=== PATIENT | female | born 1955 | race Caucasian/White ===

== ENCOUNTER 2018-10-22 13:47 | Emergency (ER) | payer OTHER ==
[2018-10-22 14:06] VITALS: BP 147/72
--- NOTE | 2018-10-22 14:22 | UC ---
UC General HPI - HPI Summary HPI Summary: day 4 of headache, sinus pain with green-bloody drainage, pain in both ears, post nasal drip with throat irritation and cough. No fever, cp, sob or COPD. Hx of sinusitis and this is the same. Pt states she rarely gets this ill. Taking otc medications with no relief. - History of Current Complaint Chief Complaint: UCGeneralIllness Stated Complaint: SORE THROAT, EAR/HEADACHE Time Seen by Provider: 10/22/18 14:14 Hx Obtained From: Patient Hx Last Menstrual Period: N/A Onset/Duration: Gradual Onset Timing: Constant Pain Intensity: 4 - Allergy/Home Medications Allergies/Adverse Reactions: Allergies Allergy/AdvReac Type Severity Reaction Status Date / Time amoxicillin Allergy Severe throat Verified 10/22/18 14:07 swelling cephalexin [From Keflex] Allergy Intermediate Rash Verified 10/22/18 14:07 Home Medications: Home Medications Latanoprost 0.005%* [Xalatan 0.005%*] 1 drop BOTH EYES QPM 10/22/18 [History Confirmed 10/22/18] Levothyroxine TAB* [Synthroid TAB*] 137 mcg PO 0800 10/22/18 [History Confirmed 10/22/18] Pravastatin Sodium 20 mg PO DAILY 10/22/18 [History Confirmed 10/22/18] Valsartan/HCTZ 320/25(NF) [Diovan Hct 320/25(NF)] 1 tab PO DAILY 10/22/18 [ History Confirmed 10/22/18] glipiZIDE TAB* [Glucotrol TAB*] 5 mg PO SEE INSTRUCTIONS 10/22/18 [History Confirmed 10/22/18] metFORMIN* [Glucophage 500 MG TAB *] 500 mg SEE INSTRUCTIONS 10/22/18 [History Confirmed 10/22/18] PMH/Surg Hx/FS Hx/Imm Hx Endocrine History: Diabetes, Thyroid Disease, Dyslipidemia - Surgical History Surgical History: Yes Surgery Procedure, Year, and Place: right knee. left foot/fx - Family History Known Family History: Positive: Non-Contributory - Social History Alcohol Use: Daily Alcohol Amount: 1-2 beers daily Substance Use Type: None Smoking Status (MU): Former Smoker - Immunization History Vaccination Up to Date: Yes Review of Systems All Other Systems Reviewed And Are Negative: Yes ENT: Positive: Sore Throat, Ear Ache, Nasal Discharge, Sinus Congestion, Sinus Pain/Tenderness Respiratory: Positive: Cough. Negative: Shortness Of Breath Neurological: Positive: Headache Physical Exam Triage Information Reviewed: Yes Appearance: Well-Appearing Vital Signs: Initial Vital Signs Temp 98 F 10/22/18 14:01 Pulse 77 10/22/18 14:01 Resp 17 10/22/18 14:01 BP 147/72 10/22/18 14:01 Pulse Ox 98 10/22/18 14:01 Vital Signs Reviewed: Yes Eyes: Positive: Conjunctiva Clear ENT: Positive: Pharynx normal, Nasal congestion, Nasal drainage, TMs normal, Sinus tenderness Neck: Positive: Supple, Nontender, No Lymphadenopathy Respiratory: Positive: Lungs clear, Normal breath sounds, No respiratory distress Cardiovascular: Positive: RRR, No Murmur Abdomen Description: Positive: Nontender, No Organomegaly, Soft Bowel Sounds: Positive: Present Musculoskeletal: Positive: ROM Intact Neurological: Positive: Alert Psychological: Positive: Age Appropriate Behavior Skin Exam: Normal Skin: Negative: Rashes Course/Dx - Differential Dx - Multi-Symptom Differential Diagnoses: Other - Ill x 4 days; however, facial pain/sinus tenderness/green-bloody drainage/ABEL plus hx sinusitis that has presented the same thus I am going to tx the pt for a presumptive bacterial infection. - Diagnoses Provider Diagnosis: Sinusitis, Bronchitis Discharge - Sign-Out/Discharge Documenting (check all that apply): Patient Departure All imaging exams completed and their final reports reviewed: No Studies - Discharge Plan Condition: Stable Disposition: HOME Prescriptions: DOXYcycline CAP(*) [DOXYcycline 100MG CAP(*)] 100 mg PO BID 10 Days #20 cap Patient Education Materials: Sinusitis (ED), Acute Bronchitis (ED) Referrals: Trent Garcia DO [Primary Care Provider] - 7 Days - Billing Disposition and Condition Condition: STABLE Disposition: Home
== END 2018-10-22 14:29 | disposition home or self-care (01) ==
LOC: UCCORT 13:47
DX: J32.9 Chronic sinusitis, unspecified (principal); J40 Bronchitis, not specified as acute or chronic; E11.9 Type 2 diabetes mellitus without complications; E78.5 Hyperlipidemia, unspecified; E07.9 Disorder of thyroid, unspecified; Z79.84 Long term (current) use of oral hypoglycemic drugs; Z79.890 Hormone replacement therapy; Z88.0 Allergy status to penicillin; Z88.1 Allergy status to other antibiotic agents; Z79.899 Other long term (current) drug therapy; Z87.891 Personal history of nicotine dependence
CPT/HCPCS: 99212; G0463

== ENCOUNTER 2019-04-15 11:41 | Emergency (ER) | payer OTHER ==
--- OUTSIDE RECORDS SUMMARY | 2019-04-15 11:54 | XMS REPORT | Continuity of Care Document ---
:1955 External Reference #:[id number] Author Name Trent Garcia DO Address [address] [place] [address] Problems Active Problems Provider Date Type 2 diabetes mellitus Trent Garcia DO Onset: 07/23/2014 Benign essential hypertension Trent Garcia DO Onset: 07/23/2014 Pure hypercholesterolemia Trent Garcia DO Onset: 07/23/2014 Hyperlipidemia Trent Garcia DO Onset: 02/15/2013 Depressive disorder Trent Garcia DO Onset: 02/15/2013 Allergic rhinitis Jc Benson MD Onset: 09/22/2004 Hypothyroidism Jc Benson MD Onset: 09/22/2004 Generalized anxiety disorder Jc Benson MD Onset: 09/22/2004 Type II diabetes mellitus uncontrolled Trent Garcia DO Onset: 02/17/2016 Social History Type Date Description Comments Sex Unknown Tobacco Use Start: Unknown End: Unknown Former Cigarette Smoker Allergies, Adverse Reactions, Alerts Active Allergies Reaction Severity Comments Date Keflex 07/24/2014 Amoxicillin 08/24/2004 Medications Active Medications SIG Qnty Indications Ordering Date Provider Trazodone HCL take one tablet 90tabs Trent Garcia, 12/29/2018 50mg by mouth at DO Tablets bedtime Levothyroxine Sodium 1 by mouth every 90tabs Trent Garcia, 09/18/2018 day DO 137mcg Tablets Glipizide ER 1 by mouth in 270tabs Trent Garcia, 03/09/2018 5mg Tablets the am and 2 by DO ER 24HR mouth in the pm Metformin HCL ER take 1 by mouth 180tabs E11.65 Trent Garcia, 11/11/2017 500mg twice a day DO Tablets ER 24HR Ciprodex 4 drops in RIGHT 7.500ml H60.312 Trent Garcia, 03/28/2017 0.3-0.1% ear twice daily DO Suspension for 7 days Pravastatin Sodium 1 by mouth every 90tabs Trent Garcia, 10/02/2012 20mg day DO Tablets Valsartan-Hydrochlorot 1 by mouth every 90tabs Trent Garcia, 06/01/2012 hiazide day DO 320-25mg Tablets Latanoprost 1 drop in each Unknown 0.005% eye nightly Solution Immunizations CPT Code Status Date Vaccine Lot # [id number] Given 03/30/2019 Afluria Or Fluvirin Flu Vac Intramuscular 99513 Given 03/29/2019 Influenza Vac, Quadrivalent, Split, 0.5mL Dosage, Im Use 38466 Given 12/29/2018 Tdap (Adacel) Ages 7 And Above Only [id number] 84050 Given 03/27/2018 Afluria Or Fluvirin Flu Vac Intramuscular Q2039 Given 04/07/2017 Flu Vaccine NOS Q2035 Given 03/06/2015 Afluria Imunization 54470 Given 01/03/2015 Zoster (Zostavax) 04976 Given 03/14/2014 Afluria Or Fluvirin Flu Vac Intramuscular 24465 Given 03/09/2007 Afluria Or Fluvirin Flu Vac Intramuscular Vital Signs Date Vital Result Comment 04/06/2019 8:36am Weight 159.00 lb Heart Rate 74 /min BP Systolic 108 mmHg BP Diastolic 64 mmHg Respiratory Rate 18 /min Height 63.5 inches 5'3.50" BMI (Body Mass Index) 27.7 kg/m2 03/30/2019 8:04am Weight 156.00 lb Heart Rate 82 /min BP Systolic 116 mmHg BP Diastolic 64 mmHg Respiratory Rate 18 /min Height 63.5 inches 5'3.50" BMI (Body Mass Index) 27.2 kg/m2 Results Test Acquired Date Facility Test Result H/L Range Note Hemoglobin A1c 03/30/2019 [facility] Hemoglobin A1c 8.3 % High 4.1-5.9 Estimated Average Glucose Calc 192 mg/dL High 71-140 Basic (BMP) 03/30/2019 [facility] Sodium 138 mmol/L 135-146 1 Potassium 3.5 mmol/L 3.5-5.2 Chloride# 98 mmol/L 97-110 2 Carbon Dioxide 28 mmol/L 24-34 Glucose 173 mg/dL High 70-105 BUN 14 mg/dL 6-26 Creatinine 0.8 mg/dL 0.5-1.4 Calcium 9.7 mg/dL 8.5-10.5 3 Female Egfr 73 >60 4 Male Egfr 93 >60 5 Anion Gap 12 mmol/L 5-15 6 CBC with Auto Diff-fcmg 03/30/2019 [facility] WBC 9.2 K/uL 4.1-11.0 RBC 5.03 M/uL 4.00-5.40 Hemoglobin 15.0 gm/dL 12.0-16.0 Hematocrit 43.4 % 36.0-47.0 MCV 86.4 fL 80.0-97.0 MCH 29.9 pg 27.0-32.0 MCHC 34.6 g/dL 32.0-36.0 RDW 13.5 % 11.5-14.5 PLT Count 263 K/ul 140-400 MPV 8.3 FL 7.1-10.7 Neutrophil 72.5 % 35.0-75.0 Lymphocyte 17.7 % 16.0-52.0 Monocyte 8.0 % 2.0-10.0 Eosinophil 1.0 % 0.0-5.0 Basophil 0.8 % 0.0-4.0 Abs Neutrophils 6.6 K/uL 2.1-8.0 Abs Lymphocytes 1.6 K/uL 0.8-5.5 Abs Monocytes 0.7 K/uL 0.1-1.0 Abs Eosinophils 0.1 K/uL 0.0-0.5 Abs Basophils 0.1 K/uL 0.0-0.3 Laboratory test finding 03/30/2019 [facility] TSH 0.85 uIU/mL 0.35-4.94 Lipid Treatment 03/30/2019 [facility] Cholesterol 157 mg/dL 50-199 Triglycerides 103 mg/dL 30-200 HDL 31 mg/dL Low 35-85 7 Chol/ HDL Ratio 5.0 ratio 3.7-5.6 VLDL 21 mg/dL 2-29 LDL (Calc) 105 mg/dL High 20-99 8 Alt 9 U/L 3-42 Ast 10 U/L 8-42 Hemoglobin A1c 12/18/2018 [facility] Hemoglobin A1c 8.8 % High 4.1-5.9 Estimated Average Glucose Calc 206 mg/dL High 71-140 Laboratory test finding 12/18/2018 [facility] TSH 0.81 uIU/mL 0.35-4.94 Free T4 1.46 ng/dL 0.70-1.48 1 Updated reference range on new analyzer 2 Updated reference range on new analyzer 3 Updated reference range 10-04-2018 4 Concerning GFR Guidelines for Americans: Normal function or mild renal disease, if clinically at risk: >/= 60 mL/min Moderately decreased: 30-59 Severely decreased: 15-29 Renal failure: <15 There is reduced accuracy above 60ml/min/1.73 m squared, but the numeric value may be clinically useful in the near 60 range 5 Concerning GFR Guidelines: Normal function or mild renal disease, if clinically at risk: >/= 60 mL/min Moderately decreased: 30-59 Severely decreased: 15-29 Renal failure: <15 There is reduced accuracy above 60ml/min/1.73 m squared, but the numeric value may be clinically useful in the near 60 range Glomerular Filtration Rate (GFR) is estimated based on the CKD-EPI equation, which assumes a steady state for creatinine as recommended by the National Kidney Disease Education Program in conjunction with the National Institutes of Health and the National Kidney Foundation. Clinical conditions in which it may be necessary to measure GFR by using clearance methods include extremes of age and body size, severe malnutrition or obesity, diseases of skeletal muscle, paraplegia or quadriplegia, vegetarian diet, rapidly changing kidney function, and calculation of the dose of potentially toxic drugs that are excreted by the kidneys. 6 Updated Reference Range 7 Per NCEP ATP III Guidelines: Results lower than 40 mg/dL are suggestive of increased risk for coronary artery disease. Results > or = to 60 mg/dL are considered a negative risk factor. 8 Per NCEP ATP III Guidelines: Normal Population <130 Patients with medical conditions: CHD/DM Optimal: <100 Borderline high: 130-159 High: 160-189 Very high: >189 Procedures Date Code Description Status 02/29/2012 10503060 Colonoscopy Completed Medical Devices Description No Information Available Encounters Type Date Location Provider Dx Diagnosis Office Visit 03/30/2019 8:00a [facility] Trent Garcia DO M25.562 Pain in LEFT knee Z68.27 Body mass index (BMI) 27.0-27.9, adult Office Visit 12/29/2018 8:30a [facility] Trent Garcia, DO E11.65 Type 2 diabetes mellitus with hyperglycemia I10 Essential (primary) hypertension E78.5 Hyperlipidemia, unspecified J30.9 Allergic rhinitis, unspecified H91.93 Unspecified hearing loss, bilateral R01.1 Cardiac murmur, unspecified F51.8 Oth sleep disord not due to a sub or known physiol cond M79.644 Pain in RIGHT finger(s) F32.9 Major depressive disorder, single episode, unspecified R19.7 Diarrhea, unspecified E03.9 Hypothyroidism, unspecified M25.512 Pain in LEFT shoulder Z23 Encounter for immunization Z68.28 Body mass index (BMI) 28.0-28.9, adult Assessments Date Code Description Provider 04/06/2019 E11.65 Type 2 diabetes mellitus with hyperglycemia Trent Gacria , DO 04/06/2019 I10 Essential (primary) hypertension Trent Garcia, DO 04/06/2019 E78.5 Hyperlipidemia, unspecified Garcia, Trent, DO 04/06/2019 J30.9 Allergic rhinitis, unspecified Garcia, Trent, DO 04/06/2019 H91.93 Unspecified hearing loss, bilateral Garcia, Trent, DO 04/06/2019 R01.1 Cardiac murmur, unspecified Garcia, Trent, DO 04/06/2019 F51.8 Other sleep disorders not due to a substance Trent Garcia , or known physio 04/06/2019 M79.644 Pain in RIGHT finger(s) Trent Garcia, DO 04/06/2019 F32.9 Major depressive disorder, single episode, Trent Garcia, DO unspecified 04/06/2019 E03.9 Hypothyroidism, unspecified Garcia, Trent, DO 04/06/2019 M25.512 Pain in LEFT shoulder GarciaTrent john, DO 04/06/2019 M25.562 Pain in LEFT knee Garcia, Trent, DO 04/06/2019 Z68.27 Body mass index (BMI) 27.0-27.9, adult Trent Garcia, DO 03/30/2019 E11.65 Type 2 diabetes mellitus with hyperglycemia Trent Garcia , DO 03/30/2019 M25.562 Pain in LEFT knee Trent Garcia, DO 03/30/2019 I10 Essential (primary) hypertension Trent Garcia, DO 03/30/2019 Z68.27 Body mass index (BMI) 27.0-27.9, adult Trent Garcia, DO 03/30/2019 E11.65 Type 2 diabetes mellitus with hyperglycemia Schedule, Laboratory 03/30/2019 I10 Essential (primary) hypertension Schedule, Laboratory 03/30/2019 E11.65 Type 2 diabetes mellitus with hyperglycemia [facility] 03/30/2019 I10 Essential (primary) hypertension [facility] 12/29/2018 E11.65 Type 2 diabetes mellitus with hyperglycemia Trent Garcia , DO 12/29/2018 I10 Essential (primary) hypertension GarciaTrent, DO 12/29/2018 E78.5 Hyperlipidemia, unspecified Trent Garcia, DO 12/29/2018 J30.9 Allergic rhinitis, unspecified Trent Garcia, DO 12/29/2018 H91.93 Unspecified hearing loss, bilateral GarciaTrent, DO 12/29/2018 R01.1 Cardiac murmur, unspecified Trent Garcia, DO 12/29/2018 F51.8 Other sleep disorders not due to a substance Jose Trent , DO or known physio 12/29/2018 M79.644 Pain in RIGHT finger(s) GarciaTrent, DO 12/29/2018 F32.9 Major depressive disorder, single episode, Trent Garcia, DO unspecified 12/29/2018 R19.7 Diarrhea, unspecified GarciaTrent, DO 12/29/2018 E03.9 Hypothyroidism, unspecified Garcia Trent, DO 12/29/2018 M25.512 Pain in LEFT shoulder GarciaTrent, DO 12/29/2018 Z23 Encounter for immunization Trent Garcia, DO 12/29/2018 Z68.28 Body mass index (BMI) 28.0-28.9, adult Trent Garcia, DO 12/18/2018 E11.65 Type 2 diabetes mellitus with hyperglycemia Trent Garcia , DO 12/18/2018 E11.65 Type 2 diabetes mellitus with hyperglycemia Schedule, Laboratory 12/18/2018 E03.9 Hypothyroidism, unspecified Agrcia, Trent, DO 12/18/2018 E03.9 Hypothyroidism, unspecified Schedule, Laboratory 12/18/2018 E11.65 Type 2 diabetes mellitus with hyperglycemia [facility] 12/18/2018 E03.9 [facility]othyroidism, [facility] Future Appointment(s):07/19/2019 9:45 am - Trent Garcia, at [facility]07/09/2019 8:40 am - Schedule, Laboratory at [facility]04/06/2019 - Trent Garcia DOE11.65 Type 2 diabetes mellitus with hyperglycemiaNew Labs:Hemoglobin A1c, Scheduled: 07/09/19Comments:The patient's labs were reviewed with the patient her A1c was elevated at 8.3Advised the patient to continue on current medication regimen which include Metformin and Glipizide.Discussed with the patient that she will benefit from maintaining a diabetic diet and a regular exercise regimen. Advised thepatient to check the sugars on regular basis.Advised the patient to revisit us to check the sugars.We will continue to monitor.Follow up:Blood work in 3 months and will follow up with me a couple of days later.I10 Essential ( primary) hypertensionComments:Today, the patient's BP is at 108/64Continue taking Valsartan-HCTZ as directed.The patient will benefit from maintaining a low sodium diet, cut down caffeine intakeThe patient was encouraged to monitorBP periodically at home and maintain a log of the same to bring along during the next visit for comparison.Advised the patient to stay hydrated.Advised the patient to maintain a normal cardiac exerciseregimen. We will continue to monitor.E78.5 Hyperlipidemia, unspecifiedComments:Condition reviewed with the patient in detail. LDL is elevated at 105.Advised the patient to continue Pravastatin 20 mg.Encouraged the patient to decrease the total amount of fat. Choose lean meats, fat free or 1% fat milk, and low-fat dairy products such as yogurt and cheese.Encouraged the patient to replace unhealthy fats with healthy fats.Encouraged the patient to eat foods high in fiber.We willrecheck it during next blood draw.J30.9 Allergic rhinitis, unspecifiedComments:Symptoms are impoved at the present time. Advised her to use OTC medications for this. We will continue to monitor.H91.93 Unspecified hearing loss, hfkduieivW02.1 Cardiac murmur, ydxgbfeufftT74.8 Other sleep disorders not due to a substance or known physioComments:Significantly improved at the present time. Has been sleeping from 7 PM to 4 PM. Recommended the patient to continue taking Trazadone. We will continue to monitor.M79.644 Pain in RIGHT finger(s)F32.9 Major depressive disorder, single episode, qsurpmxcdsyN43.9 Hypothyroidism, unspecifiedComments:TSH was normal at 0.85 when last checked.Continue taking Levothyroxine sodium 137 mcg po daily.Advised the patient to maintain a healthy diet which includes vegetables, fruits, gluten free grains and seeds, dairy and non-caffeinated beverages.Will obtain blood work in future.M25.512 Pain in LEFT xfsvkzlkV17.562 Pain in LEFT kneeComments:Recommended the patient to treat this symptomatically.Encouraged the patient to apply ice to the area for 20 minsEncouraged the patient to perform leg extension exercises. We will continue to monitor.Z68.27 Body mass index (BMI) 27.0-27.9, adultComments:BMI is at 27.7. The patient should try to lose weight with low-calorie diet and exercises. We willcontinue to monitor weight and BMI periodically. Functional Status Description No Information Available Mental Status Description No Information Available Referrals Description No Information Available
--- OUTSIDE RECORDS SUMMARY | 2019-04-15 11:54 | XMS REPORT | Continuity of Care Document ---
:1955 External Reference #:[id number] Author Name Trent Garica DO Address [address] [place] [address] Problems Active Problems Provider Date Type 2 [...] CPT Code Status Date Vaccine Lot # [id number] Given 03/29/2019 Influenza Vac, Quadrivalent, Split, 0.5mL Dosage, Im Use 94685 Given 12/29/2018 Tdap (Adacel) Ages 7 And Above Only [id number] 94547 Given 03/27/2018 Afluria Or Fluvirin Flu Vac Intramuscular Q2039 Given 04/07/2017 Flu Vaccine NOS Q2035 Given 03/06/2015 Afluria Imunization 81695 Given 01/03/2015 Zoster (Zostavax) [id number] Given 03/14/2014 Afluria Or Fluvirin Flu Vac Intramuscular 18818 Given 03/09/2007 Afluria Or Fluvirin Flu Vac Intramuscular Vital Signs Date Vital Result Comment 03/30/2019 8:04am Weight 156.00 lb Heart Rate 82 /min BP Systolic 116 mmHg BP Diastolic 64 mmHg Respiratory Rate 18 /min Height 63.5 inches 5'3.50" BMI (Body Mass Index) 27.2 kg/m2 12/29/2018 8:29am Weight 165.00 lb Heart Rate 66 /min BP Systolic 112 mmHg BP Diastolic 68 mmHg Respiratory Rate 18 /min Height 63.5 inches 5'3.50" BMI (Body Mass Index) 28.8 kg/m2 Results Test Date Facility Test Result H/L Range Note Laboratory test 03/30/2019 [facility] Hemoglobin A1c <pending> finding Laboratory test 03/30/2019 [facility] TSH <pending> finding Hemoglobin A1c 12/18/2018 [facility] Hemoglobin A1c 8.8 % High 4.1-5.9 Estimated Average Glucose Calc 206 mg/dL High 71-140 Laboratory test finding 12/18/2018 [facility] TSH 0.81 uIU/mL 0.35-4.94 Free T4 1.46 ng/dL 0.70-1.48 Procedures Date Code Description Status 02/29/2012 76852615 Colonoscopy Completed Medical Devices Description No Information Available Encounters Type Date Location Provider Dx Diagnosis Office Visit 12/29/2018 [facility] Trent Garcia DO E11.65 Type 2 diabetes 8:30a mellitus with hyperglycemia I10 Essential (primary) hypertension [...] 28.0-28.9, adult Assessments Date Code Description Provider 03/30/2019 M25.562 Pain in LEFT knee Trent Garcia DO 03/30/2019 Z68.27 Body mass index (BMI) 27.0-27.9, adult Trent Garcia DO 03/30/2019 E11.65 Type 2 diabetes mellitus with hyperglycemia Schedule, Laboratory 03/30/2019 I10 Essential (primary) hypertension Schedule, Laboratory 12/29/2018 E11.65 Type 2 diabetes mellitus with hyperglycemia Trent Garcia DO 12/29/2018 I10 Essential (primary) hypertension Trent Garcia DO 12/29/2018 E78.5 Hyperlipidemia, unspecified Trent Garcia DO 12/29/2018 J30.9 Allergic rhinitis, unspecified Trent Garcia DO 12/29/2018 H91.93 Unspecified hearing loss, bilateral Trent Garcia DO 12/29/2018 R01.1 Cardiac murmur, unspecified Trent Garcia DO 12/29/2018 F51.8 Other sleep disorders not due to a substance Trent Garcia DO or known physio 12/29/2018 M79.644 Pain in RIGHT finger(s) Trent Garcia DO 12/29/2018 F32.9 Major depressive disorder, single episode, Trent Garcia DO unspecified 12/29/2018 R19.7 Diarrhea, unspecified Trent Garcia, DO 12/29/2018 E03.9 Hypothyroidism, unspecified Trent Garcia, 12/29/2018 M25.512 Pain in LEFT shoulder Trent Garcia DO 12/29/2018 Z23 Encounter for immunization Trent Garcia DO 12/29/2018 Z68.28 Body mass index (BMI) 28.0-28.9, adult Trent Garcia, 12/18/2018 E11.65 Type 2 diabetes mellitus with hyperglycemia Trent Garcia , 12/18/2018 E11.65 Type 2 diabetes mellitus with hyperglycemia Schedule, Laboratory 12/18/2018 E03.9 Hypothyroidism, unspecified Trent Garcia, 12/18/2018 E03.9 Hypothyroidism, unspecified Schedule, Laboratory 12/18/2018 E11.65 Type 2 diabetes mellitus with hyperglycemia [facility] 12/18/2018 E03.9 Hypothyroidism, unspecified [facility] Plan of Treatment Future Appointment(s):04/06/2019 8:30 am - [facility]03/30[facility] - Trent Garcia, DOM25.562 Pain in LEFT kneeNew Xrays:Knee, Complete, LT, Scheduled: 03/30/19Comments:Discussed the condition in detail with the patient. Discussed with her that this may be chondrocalcinosis or sprain. Discussed different treatment options.-Recommended the patient to treat this symptomatically. Encouraged the patient to apply ice to the area for 20 mins- Encouraged the patient to perform leg extension exercises. -We will order plain film x-rays.-Encouraged the patient to call or come back if the symptoms persist or worsen and will get an MRI of the knee at that time.-We will continue to monitor.Follow up:Get x-ray done soon. Will follow up with me as scheduled.Z68.27 Body mass index (BMI) 27.0-27.9, adultComments:BMI is at 27.2. The patient should try to lose weight with low-calorie diet and exercises. We willcontinue to monitor weight and BMI periodically. Functional Status Description No Information Available Mental Status Description No Information Available Referrals Description No Information Available
[2019-04-15 12:03] VITALS: BP 132/69
--- NOTE | 2019-04-15 12:22 | UC ---
Laceration HPI - HPI Summary HPI Summary: Pt lacerated her right middle finger with a clean knife last night at 6 pm. She states her last tetanus was within the past 5 years. She went to her health care provider today who sent her here to have it looked at. - History Of Current Complaint Chief Complaint: UCLaceration Stated Complaint: RT MIDDLE FINGER LACERATION Time Seen by Provider: 04/15/19 12:12 Hx Obtained From: Patient Hx Last Menstrual Period: N/A Laceration Location: Finger Mechanism Of Injury: Sharp Trauma Onset/Duration: Sudden Onset Severity: Mild Pain Intensity: 4 Aggravating Factors: Nothing - Allergies/Home Medications Allergies/Adverse Reactions: Allergies Allergy/AdvReac Type Severity Reaction Status Date / Time amoxicillin Allergy Severe throat Verified 04/15/19 12:03 swelling cephalexin [From Keflex] Allergy Intermediate Rash Verified 04/15/19 12:03 Home Medications: Home Medications Trazodone HCl 50 mg PO DAILY 04/15/19 [History Confirmed 04/15/19] PMH/Surg Hx/FS Hx/Imm Hx Previously Healthy: Yes Endocrine History: Diabetes, Thyroid Disease Cardiovascular History: Hypertension - Surgical History Surgical History: Yes Surgery Procedure, Year, and Place: right knee. left foot/fx - Family History Known Family History: Positive: Hypertension, Diabetes, Non-Contributory - Social History Alcohol Use: Occasionally Alcohol Amount: 1-2 beers daily Substance Use Type: None Smoking Status (MU): Former Smoker - Immunization History Vaccination Up to Date: Yes Review of Systems All Other Systems Reviewed And Are Negative: Yes Skin: Positive: Other - laceration end of right middle finger Is Patient Immunocompromised?: No Physical Exam Triage Information Reviewed: Yes Appearance: Well-Appearing, No Pain Distress, Well-Nourished Vital Signs: Initial Vital Signs Temp 98.2 F 04/15/19 11:57 Pulse 50 04/15/19 11:57 Resp 16 04/15/19 11:57 BP 132/69 04/15/19 11:57 Pulse Ox 100 04/15/19 11:57 Vital Signs Reviewed: Yes Musculoskeletal: Positive: Strength Intact, ROM Intact, Other: Neurological: Positive: Alert, Muscle Tone Normal, Other: - Good periph pulses, neurosensation, cap refill. Full ROM, with good finger strength with flexion/ extension against resistance. Psychological Exam: Normal Skin: Positive: Other - Approx. 0.75 cm straight, clean laceration distal right middle finger tuft. Laceration Course/Dx - Course/Dx Course Of Treatment: Wound was irrigated, steristrips x 2 were applied and a bulky dressing. Pt. Tolerated the procedure well. - Diagnosis Provider Diagnosis: Laceration of right middle finger Discharge ED - Sign-Out/Discharge Documenting (check all that apply): Patient Departure All imaging exams completed and their final reports reviewed: No Studies - Discharge Plan Condition: Good Disposition: HOME Patient Education Materials: Raul (ED) Referrals: Trent Garcai DO [Primary Care Provider] - Additional Instructions: Change the dressing in 2 days. Keep the steri-strips on for 7 days. Watch for signs of infection ie) hot, red, tender, red streaks, pus drainage. Follow up with your primary care provider in 3-4 days if any concerns. - Billing Disposition and Condition Condition: GOOD Disposition: Home
== END 2019-04-15 12:30 | disposition home or self-care (01) ==
LOC: UCCORT 11:41
DX: S61.212A Laceration without foreign body of right middle finger without damage to nail, initial encounter (principal); E11.9 Type 2 diabetes mellitus without complications; I10 Essential (primary) hypertension; Z88.0 Allergy status to penicillin; Z88.1 Allergy status to other antibiotic agents; Z87.891 Personal history of nicotine dependence; W26.0XXA Contact with knife, initial encounter; Y92.9 Unspecified place or not applicable
CPT/HCPCS: 99212; G0463